=== PATIENT | female | born 1980 | race Caucasian/White ===

== ENCOUNTER 2022-03-10 17:59 | Emergency (ER) | payer BC, SELFPAY ==
[2022-03-10 18:04] VITALS: PULSE 98; RESP 16; TEMP 36.4; O2SAT 100; BMI 16.5
[2022-03-10 18:41] LABS: Lactate* 2.3 mmol/L (0.5-1.9)
--- NOTE | 2022-03-10 18:41 | CRLHL7_ITS ---
For Patients: As a result of the Cures Act, medical imaging exams and procedure reports are released immediately into your electronic medical record. You may view this report before your referring provider. If you have questions, please contact your health care provider. HISTORY: Diffuse abdominal pain. History of bowel obstruction. History of hysterectomy. TECHNIQUE: CT abdomen and pelvis without contrast. COMPARISON: CT abdomen and pelvis 04/11/2019. FINDINGS: Abdomen: Subcentimeter hypodense lesion in the right lobe of the liver is unchanged. Liver is otherwise unremarkable. Cholelithiasis. Pancreas, spleen, and adrenal glands are unremarkable. No urinary tract calculi. No hydronephrosis. No dilated bowel. Appendix is not identified but there are pericecal inflammatory changes. No free fluid. No lymphadenopathy. Abdominal aorta is not dilated. Pelvis: 3.6 cm low-density cystic lesion in the right adnexa. No lymphadenopathy. Musculoskeletal: Unremarkable. Lower chest: Unremarkable. IMPRESSION: 1. 3.6 cm cystic lesion in the right adnexa. Finding could be better assessed with pelvic ultrasound if warranted. No free fluid. 2. No acute abnormality in the abdomen or pelvis otherwise. No bowel obstruction. 3. Cholelithiasis. Please note that all CT scans at this facility use dose modulation, iterative reconstruction, and/or weight-based dosing when appropriate to reduce radiation dose to as low as reasonably achievable. Dictated by Jeffery Holland MD @ 03/10/2022 7:55:09 PM (Electronically Signed)
[2022-03-10 18:44] LABS: Basophils Absolute Auto 0.03 K/uL (0.00-0.30); Basophils Percent Auto 0.4 % (0.0-3.0); Eosinophils Absolute Auto 0.07 K/uL (0.00-0.50); Hematocrit 38.9 % (33.0-51.0); Hemoglobin* 13.6 gm/dL (12.0-16.0); Immature Granulocytes Abs Auto 0.04 K/uL (0.00-0.30); Immature Granulocytes Pct Auto 0.6 %; Lymphocytes Absolute Auto 2.26 K/uL (0.90-2.90); Lymphocytes Percent Auto 31.8 % (20-44); Mean Corpuscular HGB Conc 35 gm/dL (32-36); Mean Corpuscular Hemoglobin 34 pg (26-34); Mean Corpuscular Volume 97 fL (80-100); Monocytes Percent Auto 7.9 % (0.0-11.0); Neutrophils Absolute Auto 4.14 K/uL (1.7-7.0); Neutrophils Percent Auto 58.3 % (42.0-72.0); Platelet Count* 263 K/uL (140-440); RDW Coefficient of Variation % 11.9 % (11.5-15.5); Red Blood Count 4.02 m/uL (4.00-5.20)
[2022-03-10 18:47] LABS: Slide Review Reflex No
[2022-03-10] MEDS: ONDANSETRON 2 MG/ML inj 4 MG IVP (18:48)
[2022-03-10] MEDS: SUCRALFATE 1 GM TABLET PO (18:49)
--- NOTE | 2022-03-10 18:52 | ED.NURSE ---
given Zofran 4 mg IVP now and patient has a saline lock in the RAC #20 jelco. noted a red spot and patient denies hurting or itchy. stated was allergic to Compazine. unable to give a urine sample at this time.
[2022-03-10 18:59] LABS: Albumin* 4.3 g/dL (3.3-5.0); Chloride* 100 mmol/L (96-114)
[2022-03-10 19:00] LABS: Potassium* 3.7 mmol/L (3.6-5.1); Sodium* 129 mmol/L (135-149)
[2022-03-10 19:02] LABS: Creatinine* 0.4 mg/dL (0.5-1.5); Est. Creatinine Clearance* 133.82; Estimated Glomerular Filt Rate 127 ml/min
[2022-03-10 19:03] LABS: Alanine Aminotransferase* 31 U/L (4-35); Alkaline Phosphatase* 60 U/L (40-150); Aspartate Amino Transferase* 50 U/L (12-35); Bilirubin Direct* 0.1 mg/dL (0.0-0.5); Bilirubin Total* 0.6 mg/dL (0.1-1.5); Blood Urea Nitrogen* 10 mg/dL (5-24); Calcium* 9.2 mg/dL (8.4-10.6); Carbon Dioxide* 22 mmol/L (20-32); Glucose* 142 mg/dL (60-115); Lipase* 75 U/L (23-300)
[2022-03-10 19:06] LABS: C Reactive Protein* < 0.5 mg/dL (0.5-1.0)
[2022-03-10 19:10] VITALS: BP 123/76
[2022-03-10] MEDS: 0.9 % SODIUM CHLORIDE 500 ML 500 ML IV (19:11)
--- NOTE | 2022-03-10 19:15 | ED_ITS ---
HPI - General Adult General Chief complaint: Abdominal Pain Stated complaint: Pain Trouble Breathing Time Seen by Provider: 03/10/22 18:02 Source: patient Mode of arrival: ambulatory Limitations: no limitations History of Present Illness HPI narrative: 41-year-old female coming in today complaining of abdominal pain it started 45 minutes prior to presenting to the ER. She has waves where she feels nauseated but has vomited. No fevers or chills. Pain is located in the epigastric region radiates back and forth across the left on the right, right greater than the left. She states that the pain is incredibly intense. She states that she can not breathe. Patient's past medical history significant for hysterectomy and oophorectomy secondary to potential cancer cells, she suffered an intra- abdominal abscess formation after surgery and a small bowel obstruction. Sounds like the small bowel obstruction was treated conservatively. She denies any diarrhea, constipation. No urinary symptoms. Patient also has history of asthma for which she takes albuterol as needed and mometasone formoterol daily. She is also on daily omeprazole. Related Data Home Medications Medication Instructions Recorded Confirmed albuterol sulfate 90 mcg/actuation inhalation 03/10/22 aerosol inhaler (Ventolin HFA) aspirin 81 mg tablet,delayed mg 03/10/22 release cyclobenzaprine 10 mg tablet mg 03/10/22 mometasone-formoterol HFA 100 inhalation 03/10/22 mcg-5 mcg/actuation aerosol inhaler (Dulera) omeprazole 40 mg capsule,delayed mg 03/10/22 release ondansetron 4 mg disintegrating mg 03/10/22 tablet Previous Rx's Medication Instructions Recorded sucralfate 1 gram tablet (Carafate) 1 g PO QID PRN #30 tabs 03/10/22 Allergies Allergy/AdvReac Type Severity Reaction Status Date / Time amoxicillin Allergy Unknown Verified 03/10/22 18:16 Iodinated Contrast Media Allergy itching Verified 03/10/22 18:16 Penicillins Allergy Unknown Verified 03/10/22 18:16 Sulfa (Sulfonamide Allergy unknown Verified 03/10/22 18:16 Antibiotics) Review of Systems Status of ROS: Reports: 10 or more systems reviewed and unremarkable except as noted in History and below PFSH PFSH Social History Smoking Status: Never smoker Do you use any of these nicotine containing products: None How often do you have a drink containing alcohol: never AUDIT-C Alcohol total score: 0 Exam Narrative: Exam Narrative: Extremely thin patient moaning in pain and hyperventilating. Alert and oriented x3. Answers questions appropriately. HEENT: Normocephalic atraumatic. Pupils are equally round reactive to light. Extraocular muscles are intact. Conjunctivae are moist without any icterus noted. Moist mucous membranes. Posterior pharynx is normal. Neck is soft without any lymphadenopathy or thyromegaly. No masses are appreciated. Cardiovascular: Heart is regular rate and rhythm S1 and S2 are present without any murmurs. Lungs: Clear to auscultation bilaterally no wheezes rhonchi or rales are appreciated. Patient takes deep breaths without any discomfort. Abdomen: Soft and nondistended with normal bowel sounds. No guarding or rebound. No masses or organomegaly appreciated. Negative Mccormick sign. She has tenderness in the epigastric region. Extremities: Bilateral lower extremities are without edema. Normal DP and PT pulses. Skin: Well perfused without any obvious rashes. Const: Vital Signs, click to edit/add: Vital Signs - 24 hr 03/10/22 18:04 03/10/22 19:10 Temperature 97.5 F L Pulse Rate [Pulse Oximeter] 98 Respiratory Rate 16 Blood Pressure [Le ft Upper Arm] 123/76 Pulse Oximetry 100 Oxygen Delivery Me thod Room Air Course Course Hospital Course: IV was established labs were drawn. Patient received IV Zofran and oral Carafate and then proceeded to abdominal CT. By the time she returned from CT her pain is completely resolved. Labs were unremarkable aside from a low sodium at 129 and an elevated lactate at 2.3- because of this she received 500 mL of normal saline. CT scan showing a probable ovarian cyst, no other abnormalities to explain her epigastric discomfort. Vital Signs Vital signs: Initial Vital Signs Temperature 97.5 F L 03/10/22 18:04 Temperature Source Temporal Artery Scan 03/10/22 18:04 Pulse Rate 98 03/10/22 18:04 Respiratory Rate 16 03/10/22 18:04 Pulse Oximetry 100 03/10/22 18:04 Oxygen Delivery Method 03/10/22 18:04 Vital Signs Temperature 97.5 F L 03/10/22 18:04 Pulse Rate 98 03/10/22 18:04 Respiratory Rate 16 03/10/22 18:04 Pulse Oximetry 100 03/10/22 18:04 Oxygen Delivery Method 03/10/22 18:04 Temperature 97.5 F L 03/10/22 18:04 Pulse Rate 98 03/10/22 18:04 Respiratory Rate 16 03/10/22 18:04 Blood Pressure 123/76 03/10/22 19:10 Pulse Oximetry 100 03/10/22 18:04 Oxygen Delivery Method 03/10/22 18:04 Medical Decision Making MDM Narrative Medical decision making narrative: 41-year-old female coming in today with acute abdominal pain that has not resolved. Causes of pain considered could be gastritis, peptic ulcer disease, gallstone that has passed, abdominal wall pain. She also presented with some hyponatremia and a slightly elevated lactate, status post IV fluids. We will send her home with Carafate. Also noted a 3.6 cm cystic lesion right adnexa-recommend follow-up with ultrasound as an outpatient. Medical Records Medical records reviewed: Yes I reviewed the patient's medical records Lab Data Lab results reviewed: Yes I reviewed the patient's lab results Labs: Lab Results 03/10/22 03/10/22 03/10/22 Range/Units 18:17 18:30 18:30 WBC 7.10 (4.50-11.00) K/uL RBC 4.02 (4.00-5.20) m/uL Hgb 13.6 (12.0-16.0) gm/dL Hct 38.9 (33.0-51.0) % MCV 97 (80-100) fL MCH 34 (26-34) pg MCHC 35 (32-36) gm/dL RDW Coeff of Alok 11.9 (11.5-15.5) % Plt Count 263 (140-440) K/uL Neut % (Auto) 58.3 (42.0-72.0) % Lymph % (Auto) 31.8 (20-44) % [place] % (Auto) 7.9 (0.0-11.0) % Eos % (Auto) 1.0 (0.0-7.0) % Baso % (Auto) 0.4 (0.0-3.0) % Neut # (Auto) 4.14 (1.7-7.0) K/uL Lymph # (Auto) 2.26 (0.90-2.90) K/uL [place] # (Auto) 0.60 (0.00-0.90) K/UL Eos # (Auto) 0.07 (0.00-0.50) K/uL Baso # (Auto) 0.03 (0.00-0.30) K/uL ESR 3 (2-20) mm/hr Sodium (135-149) mmol/L Potassium (3.6-5.1) mmol/L Chloride (96-114) mmol/L Carbon Dioxide (20-32) mmol/L BUN (5-24) mg/dL Creatinine (0.5-1.5) mg/dL Estimated Creat Clear Estimated GFR ml/min Glucose (60-115) mg/dL Lactate (0.5-1.9) mmol/L Calcium (8.4-10.6) mg/dL Total Bilirubin (0.1-1.5) mg/dL Direct Bilirubin (0.0-0.5) mg/dL AST (12-35) U/L ALT (4-35) U/L Alkaline Phosphatase (40-150) U/L C-Reactive Protein (0.5-1.0) mg/dL Total Protein (6.0-8.3) g/dL Albumin (3.3-5.0) g/dL Lipase (23-300) U/L HCG, Qual Negative (Negative) Urine Color Yellow (Yellow) Urine Appearance Cloudy A (Clear) Urine pH 8.5 (5.0-8.5) Ur Specific [place] 1.015 (1.000-1.030) Urine Protein Trace A (Negative) Urine Glucose (UA) Negative (Negative) Urine Ketones 1+ A (Negative) Urine Blood Negative (Negative) Urine Nitrite Negative (Negative) Urine Bilirubin Negative (Negative) Urine Urobilinogen 0.2 (0.2-1.0) Ur Leukocyte Esterase Negative (Negative) Urine RBC 0-2 (0-2) Urine WBC 0-2 (0-5) Ur Squamous Epith Cells None (None-Few) Other Sediment Few A (None) Urine Bacteria Few A (None) POC Troponin I (0.01-0.04) ng/ml 03/10/22 03/10/2223 Range/Units 18:30 18:30 18:30 WBC (4.50-11.00) K/uL RBC (4.00-5.20) m/uL Hgb (12.0-16.0) gm/dL Hct (33.0-51.0) % MCV (80-100) fL MCH (26-34) pg MCHC (32-36) gm/dL RDW Coeff of Alok (11.5-15.5) % Plt Count (140-440) K/uL Neut % (Auto) (42.0-72.0) % Lymph % (Auto) (20-44) % [place] % (Auto) (0.0-11.0) % Eos % (Auto) (0.0-7.0) % Baso % (Auto) (0.0-3.0) % Neut # (Auto) (1.7-7.0) K/uL Lymph # (Auto) (0.90-2.90) K/uL [place] # (Auto) (0.00-0.90) K/UL Eos # (Auto) (0.00-0.50) K/uL Baso # (Auto) (0.00-0.30) K/uL ESR (2-20) mm/hr Sodium 129 L (135-149) mmol/L Potassium 3.7 (3.6-5.1) mmol/L Chloride 100 (96-114) mmol/L Carbon Dioxide 22 (20-32) mmol/L BUN 10 (5-24) mg/dL Creatinine 0.4 L (0.5-1.5) mg/dL Estimated Creat Clear 133.82 Estimated GFR 127 ml/min Glucose 142 H (60-115) mg/dL Lactate 2.3 H (0.5-1.9) mmol/L Calcium 9.2 (8.4-10.6) mg/dL Total Bilirubin 0.6 (0.1-1.5) mg/dL Direct Bilirubin 0.1 (0.0-0.5) mg/dL AST 50 H (12-35) U/L ALT 31 (4-35) U/L Alkaline Phosphatase 60 (40-150) U/L C-Reactive Protein < 0.5 L (0.5-1.0) mg/dL Total Protein 7.0 (6.0-8.3) g/dL Albumin 4.3 (3.3-5.0) g/dL Lipase 75 (23-300) U/L HCG, Qual (Negative) Urine Color (Yellow) Urine Appearance (Clear) Urine pH (5.0-8.5) Ur Specific [place] (1.000-1.030) Urine Protein (Negative) Urine Glucose (UA) (Negative) Urine Ketones (Negative) Urine Blood (Negative) Urine Nitrite (Negative) Urine Bilirubin (Negative) Urine Urobilinogen (0.2-1.0) Ur Leukocyte Esterase (Negative) Urine RBC (0-2) Urine WBC (0-5) Ur Squamous Epith Cells (None-Few) Other Sediment (None) Urine Bacteria (None) POC Troponin I 0.00 L (0.01-0.04) ng/ml Imaging Data CT scan - abdomen: Attestation: I have reviewed the pertinent imaging results. Radiologist's impression: CT abdomen and pelvis without contrast. COMPARISON: CT abdomen and pelvis 04/11/2019. FINDINGS: Abdomen: Subcentimeter hypodense lesion in the right lobe of the liver is unchanged. Liver is otherwise unremarkable. Cholelithiasis. Pancreas, spleen, and adrenal glands are unremarkable. No urinary tract calculi. No hydronephrosis. No dilated bowel. Appendix is not identified but there are pericecal inflammatory changes. No free fluid. No lymphadenopathy. Abdominal aorta is not dilated. Pelvis: 3.6 cm low-density cystic lesion in the right adnexa. No lymphadenopathy. Musculoskeletal: Unremarkable. Lower chest: Unremarkable. IMPRESSION: 1. 3.6 cm cystic lesion in the right adnexa. Finding could be better assessed with pelvic ultrasound if warranted. No free fluid. 2. No acute abnormality in the abdomen or pelvis otherwise. No bowel obstruction. 3. Cholelithiasis. Discharge Plan Discharge Clinical Impression: Hyponatremia, Abdominal pain Patient Disposition: Home, Self-Care Condition: Improved Additional Instructions: Abdominal CT did not show any abnormalities aside from a cystic lesion on your right ovary. This should be evaluated with an outpatient ultrasound. Follow-up with your primary care provider to have this scheduled. I was sent home with some Carafate today which is the medicine you to while you are here if you develop pain again tried taking this to see if it is alleviated. If you develop pain it is not go away or you develop a fever return to the ER. Prescriptions: New sucralfate [Carafate] 1 gram tablet 1 g PO QID PRNQty: 30 0RF No Action cyclobenzaprine 10 mg tablet Label Comments: Take 0.5-1 Tablets (5-10 mg) by mouth 3 times daily if needed for Muscle Spasm. omeprazole 40 mg capsule,delayed release(DR/EC) Label Comments: take 1 capsule by mouth every day before a meal aspirin 81 mg tablet,delayed release (DR/EC) albuterol sulfate [Ventolin HFA] 90 mcg/actuation HFA aerosol inhaler INHALATION Label Comments: Inhale 2 Puffs by mouth every 4 hours if needed for Shortness Of Breath. ondansetron 4 mg tablet,disintegrating Label Comments: Place 1 Tablet (4 mg) on the tongue every 8 hours if needed for Nausea/Vomiting. Dulera 100-5 mcg/actuation HFA aerosol inhaler INHALATION Label Comments: Inhale 2 Puffs by mouth two times daily. Follow Up/Referrals: Provider,Not a Local [Primary Care Provider] - Stand Alone Forms: [employer] Info Instructions
[2022-03-10 19:26] LABS: Appearance Urine Cloudy (Clear); Bilirubin Urine Negative (Negative); Blood Urine Negative (Negative); Color Urine Yellow (Yellow); Glucose Urine Negative (Negative); Ketones Urine 1+ (Negative); Leukocyte Esterase Urine Negative (Negative); Nitrite Urine Negative (Negative); Protein Urine Trace (Negative); Specific Gravity Urine 1.015 (1.000-1.030); Urobilinogen Urine 0.2 (0.2-1.0); pH Urine 8.5 (5.0-8.5)
[2022-03-10 19:40] LABS: HCG Qualitative* Negative (Negative)
[2022-03-10 19:50] LABS: RBC Urine 0-2 (0-2); WBC Urine 0-2 (0-5)
[2022-03-10 19:51] LABS: Erythrocyte SedimentationRate* 3 mm/hr (2-20)
[2022-03-10 19:51] LABS: Bacteria Urine Few; Other Sediment Urine Few
[2022-03-10 20:21] VITALS: BP 131/64; PULSE 71; RESP 16; TEMP 36.7
== END 2022-03-10 20:22 | disposition home or self-care (01) ==
PROVIDERS: Emergency Provider Family Medicine
DX: E87.1 Hypo-osmolality and hyponatremia (principal); R10.9 Unspecified abdominal pain
CPT/HCPCS: 36415; 74176; 80048; 80076; 81001; 83605; 83690; 84484; 84703; 85025; 85651; 86140; 87086; 93005; 96374; 99284; A9270; J2405; J7120

== ENCOUNTER 2022-09-11 14:20 | Outpatient (CLI) | payer BC, SELFPAY | END 2022-09-11 14:21 | disposition home or self-care (01) | PROVIDERS: PCP Family Medicine | DX: E87.1 Hypo-osmolality and hyponatremia (principal) | CPT/HCPCS: 36415; 99195 ==